=== PATIENT | male | born 1940 | race Caucasian/White ===

== ENCOUNTER 2018-01-27 09:28 | Outpatient (RCR) | payer MEDICARE ==
[2018-01-05 09:33] VITALS: BP 142/60
[~2018-01-27] VITALS: Ht 182.9 cm; Wt 88.5 kg
[~2018-01-27 09:28] MED LIST: ALEVE220 M1 PO; AMLODIPINE5 MG PO; CALCIUM600 M1 OR; CENTRUM SILVER PO; CHONDROITIN PO; CIPRO500 MG PO; CYANOCOBALAM1000 MCG IJ; CYANOCOBALAM1000 MCG IM; ECOTRIN325 MG OR; EQ ASPIRIN325 MG PO; FLUARIX QUADRIV1 IN1 IM; GLUCOSAMINE1 TA1 OR; LISINOPRIL10 MG PO; MULT VITAMI1 OR; NAPROSYN500 MG PO; POTASSI19 XX; PRESERVISION OR; SIMVASTATIN20 MG OR; TAMSULOSIN0.4 MG PO; ZOCOR20 M1 PO; ZOCOR20 MG PO
== END 2018-01-27 10:00 | disposition home or self-care (01) ==
LOC: OPWC 09:28
PROVIDERS: ATTEND Nurse Practitioner Adult Health
DX: L02.212 Cutaneous abscess of back [any part, except buttock and flank] (principal); Z48.00 Encounter for change or removal of nonsurgical wound dressing
CPT/HCPCS: G0463

== ENCOUNTER 2019-10-24 13:07 | Emergency (ER) | payer MEDICARE ==
[~2019-10-24] VITALS: Ht 182.9 cm; Wt 93.1 kg
[2019-10-24 15:00] VITALS: BP 129/74
[2019-10-24] MEDS ORDERED: AMIODARONE HCL200 MG PO (15:02)
[2019-10-24] MEDS ORDERED: CARVEDILOL6.25 MG PO (15:02)
[2019-10-24] MEDS ORDERED: LOSARTAN POTASS50 MG PO (15:03)
[2019-10-24] MEDS ORDERED: ELIQUIS5 MG PO (15:03)
[2019-10-24] MEDS ORDERED: OMEPRAZOLE DR20 MG PO (15:03)
[2019-10-24] MEDS ORDERED: TAMSULOSIN HCL0.4 MG PO (15:04)
== END 2019-10-24 15:00 | disposition home or self-care (01) ==
LOC: ED 13:07
PROC: 0RSXXZZ Reposition Left Finger Phalangeal Joint, External Approach (ICD-10-PCS; principal; 2019-10-24)
DX: S63.285A Dislocation of proximal interphalangeal joint of left ring finger, initial encounter (principal); I10 Essential (primary) hypertension; W01.0XXA Fall on same level from slipping, tripping and stumbling without subsequent striking against object, initial encounter; Y93.H9 Activity, other involving exterior property and land maintenance, building and construction; Y92.007 Garden or yard of unspecified non-institutional (private) residence as the place of occurrence of the external cause

== ENCOUNTER 2022-01-30 11:29 | Emergency (ER) | payer MEDICARE ==
[~2022-01-30] VITALS: Ht 182.9 cm; Wt 93.0 kg
[~2022-01-30 11:29] MED LIST changes: +AMIODARONE HCL200 MG PO; +CARVEDILOL6.25 MG PO; +ELIQUIS5 MG PO; +LEVOTHYROXIN50 MCG PO; +LOSARTAN POTASS50 MG PO; +OMEPRAZOLE DR20 MG PO; +TAMSULOSIN HCL0.4 MG PO; +VITAMIN B12500 MC1 PO
[2022-01-30 11:46] VITALS: BP 130/74
[2022-01-30 12:01] VITALS: BP 132/80
[2022-01-30 12:31] VITALS: BP 163/141
[2022-01-30] MEDS ORDERED: KEFLEX500 MG PO (12:38)
[2022-01-30 13:03] VITALS: BP 163/141
== END 2022-01-30 13:09 | disposition home or self-care (01) ==
LOC: ED 11:29
DX: S81.811A Laceration without foreign body, right lower leg, initial encounter (principal); I10 Essential (primary) hypertension; W22.8XXA Striking against or struck by other objects, initial encounter; Y93.89 Activity, other specified; Y92.009 Unspecified place in unspecified non-institutional (private) residence as the place of occurrence of the external cause; Z95.2 Presence of prosthetic heart valve; Z79.01 Long term (current) use of anticoagulants

== ENCOUNTER 2024-06-25 07:39 | Emergency (ER) | payer MEDICARE ==
[~2024-06-25] VITALS: Ht 182.9 cm; Wt 86.3 kg
[~2024-06-25 07:39] MED LIST changes: +KEFLEX500 MG PO
[2024-06-25 07:48] VITALS: BP 138/71
[2024-06-25] MEDS ORDERED: SODIUM CHLORIDE 0.9% 1,000 ML IV ONE (07:50)
[2024-06-25] MEDS ORDERED: ONDANSETRON HCl 4 MG/2 ML SDV IV ONE (07:50)
[2024-06-25 08:00] VITALS: BP 131/72
[2024-06-25 08:30] VITALS: BP 138/74
[2024-06-25 08:34] LABS: BASO% 0.2 % (0-3); EOS% 1.2 % (0-8); HEMATOCRIT 41.4 % (39.0-50.0); HEMOGLOBIN 13.8 g/dl (14.0-18.0); IMMATURE GRANULOCYTES 0.6 % (0.0-5.0); LYMPH% 4.2 % (15-41); MEAN CORPUSCULAR HGB CONC 33.3 g/dL CAL (32.0-36.0); MONO% 7.8 % (2-13); NEUT# 10.92 thou/uL (1.82-7.42); RED BLOOD COUNT 4.45 mill/uL (4.70-6.10); RED CELL DISTRI WIDTH 12.4 % (11.5-15.5)
[2024-06-25 08:43] LABS: ALBUMIN 4.7 g/dL (3.2-5.0); BILIRUBIN, TOTAL 0.9 mg/dL (0.2-1.3); CREATININE 1.2 mg/dL (0.7-1.3); POTASSIUM 4.8 mmol/l (3.5-5.1); TOTAL PROTEIN 7.8 g/dL (6.3-8.2)
[2024-06-25] MEDS ORDERED: ONDANSETRON4 MG PO (09:06)
[2024-06-25 09:12] VITALS: BP 138/74
== END 2024-06-25 09:30 | disposition home or self-care (01) ==
LOC: ED 07:39
PROVIDERS: Family Medicine
DX: K29.70 Gastritis, unspecified, without bleeding (principal); I10 Essential (primary) hypertension; Z20.822 Contact with and (suspected) exposure to COVID-19
CPT/HCPCS: J2405